=== PATIENT | male | born 1975 | race Two or more races ===

== ENCOUNTER 2019-05-15 14:04 | Emergency (ER) | payer MEDICARE, OTHER ==
[~2019-05-15] VITALS: Ht 182.9 cm; Wt 106.6 kg
--- NOTE | 2019-05-15 14:25 | NUR ---
Dr Deras at the bedside for MSE.
[2019-05-15] MEDS ORDERED: OLANZAPINE 5 MG TABLET PO ONE ×3 (14:30→16:00)
[2019-05-15 14:39] LABS: *BILIRUBIN,URIN 1+ (NEGATIVE); *BLOOD, URINE NEGATIVE (NEGATIVE); *CLARITY,URINE CLEAR (CLEAR); *COLOR,URINE AMBER (YELLOW); *KETONES,URINE NEGATIVE (NEGATIVE); LEUKOCYTE ESTERASE ,URINE NEGATIVE (NEGATIVE); NITRITE, URINE NEGATIVE (NEGATIVE); UGLUCOSE NEGATIVE (NEGATIVE)
[2019-05-15 14:49] LABS: BASOPHILS # (AUTO) 0.1 K/uL (0.0-8.0); BASOPHILS % (AUTO) 1.1 % (0.0-2.0); EOSINOPHILS # (AUTO) 0.1 K/uL (0.0-0.7); EOSINOPHILS % (AUTO) 1.6 % (0.0-7.0); HEMATOCRIT 38.7 % (36.7-47.1); HEMOGLOBIN 13.1 g/dL (12.5-16.3); LYMPHOCYTES # (AUTO) 1.9 K/uL (20.0-40.0); LYMPHOCYTES % (AUTO) 38.1 % (20.5-51.5); MEAN CORPUSCULAR HEMOGLOBIN 27.4 uug (23.8-33.4); MEAN CORPUSCULAR HGB CONC 34 g/dL (32.5-36.3); MEAN CORPUSCULAR VOLUME 80.8 fL (73.0-96.2); MONOCYTES # (AUTO) 0.6 K/uL (2.0-10.0); MONOCYTES % (AUTO) 11.8 % (0.0-11.0); NEUTROPHILS # (AUTO) 2.3 K/uL (1.8-8.9); NEUTROPHILS % (AUTO) 47.4 % (38.5-71.5); PLATELET COUNT (AUTO) 290 K/uL (152-348); RED BLOOD CELL COUNT(AUTO) 4.79 MIL/uL (4.06-5.63); WHITE BLOOD COUNT (AUTO) 4.9 K/uL (3.6-10.2)
[2019-05-15] MEDS ORDERED: OLANZAPINE 5 MG TABLET ONE ×2 (14:50→15:41)
[2019-05-15 14:55] LABS: MUCUS,URINE MANY /LPF (0-FEW); RBC,URINE 0-3 /HPF (0-3)
[2019-05-15] MEDS ORDERED: ARIP20TA4 PO (14:55)
[2019-05-15] MEDS ORDERED: OLAN20TA3 PO (14:55)
[2019-05-15] MEDS ORDERED: PHEN100C4 PO (14:55)
--- NOTE | 2019-05-15 14:56 | NUR ---
pt admits to noncompliance to meds - states he recently had a seizure -has been out of meds few days.
[2019-05-15 14:57] LABS: CARBON DIOXIDE 27 mmol/L (21-32); CHLORIDE 103 mmol/L (98-107); CREATININE 1.3 mg/dL (0.6-1.3); GLUCOSE 118 mg/dL (74-106); POTASSIUM 3.6 mmol/L (3.5-5.1); UREA NITROGEN, BLOOD 21 mg/dL (7-18)
[2019-05-15 15:02] LABS: ACETAMINOPHEN < 2.0 ug/mL (10-30); ALANINE AMINOTRANSFERASE 34 U/L (16-63); ALKALINE PHOSPHATASE 108 U/L (50-136); ASPARTATE AMINOTRANSFERASE 35 U/L (15-37); BILIRUBIN,DIRECT 0.3 mg/dL (0.0-0.2)
--- NOTE | 2019-05-15 15:02 | NUR ---
Pt resting w/ both eyes clsoed, NAD noted. 1 to 1 security at the bedside.
--- NOTE | 2019-05-15 15:33 | NUR ---
Pt yelling out, stating stop talking to me. When asked if he is ok, pt states I think more Zyprexa. Dr Deras made aware.
[2019-05-15 15:39] LABS: ETHANOL < 3 MG/DL (0-0)
--- NOTE | 2019-05-15 15:48 | NUR ---
Pt is medically cleared by Dr Deras, pending [facility] drug screen. [facility] team called, and left message for Alix Mejia RN, awaiting call back.
--- NOTE | 2019-05-15 16:33 | NUR ---
Called Hanna VENEGAS, PET butt presser supervisor component assembler. She asked to notify Alix. who will take over at 1700.
[2019-05-15 16:41] LABS: *AMPHETAMINE, URINE POSITIVE (NEGATIVE); *BARBITURATE, URINE NEGATIVE (NEGATIVE); *CANNABINOID, URINE NEGATIVE (NEGATIVE); *COCCAINE, URINE NEGATIVE (NEGATIVE); *OPIATE, URINE NEGATIVE (NEGATIVE); *PHENCYCLIDINE SCREEN,URINE NEGATIVE (NEGATIVE)
--- NOTE | 2019-05-15 16:41 | NUR ---
Recieved call from Alix, LINDSEY [phone].
--- NOTE | 2019-05-15 17:18 | NUR ---
Patient is resting comfortably in bed with eyes closed, NAD noted.
--- NOTE | 2019-05-15 17:47 | NUR ---
Alix Gonzalez RN from PET at the bedside for psych eval.
--- NOTE | 2019-05-15 20:32 | NUR ---
Spoke to Afia, intake for [facility], for an update. She stated that she is still trying to figure out placement for the patient, and will call back as soon everything has been finalized.
--- NOTE | 2019-05-15 21:49 | NUR ---
Afia returned phone call and patient has been accepted to [facility].
--- NOTE | 2019-05-15 21:54 | NUR ---
Transport set up with FLORENT[facility] PORTILLO [id number] Ticket #[id number]
--- NOTE | 2019-05-15 22:24 | NUR ---
Report given to Selene at [facility]
--- NOTE | 2019-05-16 00:25 | NUR ---
FLORENTIN arrived at facility to transport patient. Patient Tranferred to outside Facility Physician:Dr. Camejo Location: [facility]
== END 2019-05-16 00:25 | disposition short-term general hospital (02) ==
LOC: ER 14:04
DX: R45.851 Suicidal ideations (principal); F29 Unspecified psychosis not due to a substance or known physiological condition; F31.9 Bipolar disorder, unspecified; F20.9 Schizophrenia, unspecified; F17.210 Nicotine dependence, cigarettes, uncomplicated; Z79.899 Other long term (current) drug therapy
CPT/HCPCS: 36415; 80048; 80076; 80185; 80307; 81000; 81001; 85025; 93005; 99285; G0480 ×2; G0481; A4663